=== PATIENT | female | born 1940 | race Caucasian/White ===

== ENCOUNTER 2021-09-29 20:38 | Emergency (ER) | payer OTHER ==
[~2021-09-29] VITALS: Ht 162.6 cm; Wt 70.8 kg
[2021-09-29 20:47] VITALS: BP_SYST 124
[2021-09-29] MEDS ORDERED: BENZTROPINE MESYLATE 2 MG/ 2 ML AMP IM ONE (23:00)
[2021-09-29] MEDS ORDERED: HALOPERIDOL LACTATE 5 MG/ML VIAL IM ONE (23:00)
[2021-09-30 01:50] VITALS: BP_SYST 120
== END 2021-09-30 01:50 ==
LOC: SED 20:38
DX: F25.9 Schizoaffective disorder, unspecified (principal); E11.22 Type 2 diabetes mellitus with diabetic chronic kidney disease; N18.9 Chronic kidney disease, unspecified; Z20.822 Contact with and (suspected) exposure to COVID-19; I10 Essential (primary) hypertension
CPT/HCPCS: 71045; 87081; 99285